=== PATIENT | male | born 1960 | race Caucasian/White ===

== ENCOUNTER 2020-11-16 09:11 | Emergency (ER) | payer OTHER ==
[~2020-11-16] VITALS: Ht 170.2 cm; Wt 83.9 kg
[2020-11-16 09:16] VITALS: BP_SYST 151
[2020-11-16] MEDS ORDERED: MAG HYDROX/AL HYDROX/SIMETH 30 ML, DICYCLOMINE HCL 20 MG, LIDOCAINE VISCOUS 2% 15ML (PO... PO ONE ×3 (09:45)
[2020-11-16] MEDS ORDERED: KETOROLAC TROMETHAMINE 60 MG/2 ML VIAL IM ONE (09:45)
[2020-11-16 09:50] LABS: BASOPHILS % (AUTO) 0.3 % (0.0-2.0); EOSINOPHILS # (AUTO) 0.1 K/uL (0.0-0.4); EOSINOPHILS % (AUTO) 0.8 % (0.0-4.0); HEMATOCRIT 48.6 % (36-54); HEMOGLOBIN 16.4 g/dL (14.0-18.0); LYMPHOCYTES # (AUTO) 1.5 K/uL (1.0-5.5); LYMPHOCYTES % (AUTO) 8.1 % (20.5-51.5); MEAN CORPUSCULAR HEMOGLOBIN 29 pg (27-31); MEAN CORPUSCULAR HGB CONC 34 % (32-36); MEAN CORPUSCULAR VOLUME 85 fL (79.0-98.0); MONOCYTES # (AUTO) 1.4 K/uL (0.0-1.0); MONOCYTES % (AUTO) 7.8 % (1.7-9.3); NEUTROPHILS # (AUTO) 15.2 K/uL (1.8-7.7); PLATELET COUNT (AUTO) 186 K/uL (130-430); RED BLOOD CELL COUNT(AUTO) 5.71 MIL/uL (4.2-6.2); RED CELL DISTRIBUTION WIDTH 12.7 % (9.0-15.0); WHITE BLOOD COUNT (AUTO) 18.3 K/uL (4.8-10.8)
[2020-11-16 10:11] LABS: CALCIUM 9.4 mg/dL (8.4-11.0); CREATININE 0.93 mg/dL (0.55-1.30); POTASSIUM 3.6 mmol/L (3.5-5.1)
[2020-11-16 10:17] LABS: ALBUMIN 3.7 g/dL (3.4-4.8); TOTAL BILIRUBIN 1.1 mg/dL (0.0-1.0)
[2020-11-16] MEDS ORDERED: HYDR-3917 PO (11:47)
[2020-11-16 12:06] VITALS: BP_SYST 129
== END 2020-11-16 12:06 | disposition home or self-care (01) ==
LOC: SED 09:11
DX: K80.50 Calculus of bile duct without cholangitis or cholecystitis without obstruction (principal); Z88.1 Allergy status to other antibiotic agents; Z79.899 Other long term (current) drug therapy
CPT/HCPCS: 36415; 74018; 76700; 80053; 83690; 85025; 96372; 99285; J1885; J2001

== ENCOUNTER 2020-11-17 19:30 | Inpatient (IN) | payer OTHER, SELFPAY ==
[~2020-11-17] VITALS: Ht 170.2 cm; Wt 78.5 kg
[~2020-11-17 19:30] MED LIST: HYDR-3917 PO
[2020-11-17 19:38] VITALS: BP_SYST 137
[2020-11-17] MEDS ORDERED: NACL 0.9% 1,000 ML IV ONE (21:15)
[2020-11-17 21:51] LABS: BASOPHILS % (AUTO) 0.2 % (0.0-2.0); EOSINOPHILS # (AUTO) 0.1 K/uL (0.0-0.4); EOSINOPHILS % (AUTO) 0.4 % (0.0-4.0); HEMATOCRIT 48.1 % (36-54); HEMOGLOBIN 16.4 g/dL (14.0-18.0); LYMPHOCYTES # (AUTO) 1.5 K/uL (1.0-5.5); LYMPHOCYTES % (AUTO) 8.7 % (20.5-51.5); MEAN CORPUSCULAR HEMOGLOBIN 29 pg (27-31); MEAN CORPUSCULAR HGB CONC 34 % (32-36); MEAN CORPUSCULAR VOLUME 85 fL (79.0-98.0); MONOCYTES # (AUTO) 1.6 K/uL (0.0-1.0); NEUTROPHILS # (AUTO) 14.4 K/uL (1.8-7.7); NEUTROPHILS % (AUTO) 81.7 % (40.0-70.0); PLATELET COUNT (AUTO) 180 K/uL (130-430); RED BLOOD CELL COUNT(AUTO) 5.66 MIL/uL (4.2-6.2); RED CELL DISTRIBUTION WIDTH 12.6 % (9.0-15.0); WHITE BLOOD COUNT (AUTO) 17.7 K/uL (4.8-10.8)
[2020-11-17 21:54] LABS: CALCIUM 9.1 mg/dL (8.4-11.0); CREATININE 0.95 mg/dL (0.55-1.30); POTASSIUM 3.8 mmol/L (3.5-5.1)
[2020-11-17 22:06] LABS: ALBUMIN 3.5 g/dL (3.4-4.8); TOTAL BILIRUBIN 1.3 mg/dL (0.0-1.0)
[2020-11-18] VITALS (7 sets, daily range): BP systolic 134–154
[2020-11-18] MEDS ORDERED: NICOTINE 14 MG/24 HR PATCH.TD24 TD ONE
[2020-11-18] MEDS ORDERED: NACL 0.9% 1,000 ML IV ONE
[2020-11-18] MEDS ORDERED: PIPERACILLIN/TAZO 3.375 GM in NS 50 ML IV ONE ×2
[2020-11-18] MEDS ORDERED: MORPHINE 4 MG INJ. 4 MG/ML VIAL IVP ONE
[2020-11-18 00:10] LABS: INR 1.1 (0.80-1.20); PROTHROMBIN TIME 11.3 SECS (9.5-12.5)
[2020-11-18] MEDS ORDERED: PIPERACILLIN/TAZOBACTAM 3.375 GM/VIAL (ZOSYN) IV ONE ×2 (00:20→05:40)
[2020-11-18 00:48] LABS: BILIRUBIN,URINE NEGATIVE (NEGATIVE); CLARITY/URINE CLEAR (CLEAR); COLOR,URINE YELLOW (YELLOW); GLUCOSE,URINE NEGATIVE (NEGATIVE); KETONES,URINE NEGATIVE (NEGATIVE); LEUKOCYTE ESTERASE ,URINE NEGATIVE (NEGATIVE); NITRITE, URINE NEGATIVE (NEGATIVE); PH,URINE 7.5 (5.0-8.0); PROTEIN URINE TRACE (NEGATIVE); UROBILINOGEN,URINE 0.2 (0.2-1.0)
[2020-11-18 00:51] LABS: BLOOD, URINE TRACE (NEGATIVE)
[2020-11-18] MEDS ORDERED: NALOXONE HCL 0.4 MG/ML AMP (NARCAN) IVP PRN (01:00)
[2020-11-18] MEDS ORDERED: ACETAMINOPHEN 325 MG TABLET PO PRN (01:00)
[2020-11-18] MEDS ORDERED: ALBUTEROL SULFATE 0.083% 2.5 MG/3 ML VIAL.NEB INH PRN (01:00)
[2020-11-18 01:07] LABS: BACTERIA,URINE FEW /HPF (None Seen); WBC,URINE 0-3 /HPF (0-3)
[2020-11-18] MEDS: MORPHINE 2 MG/ML INJ. SYRINGE IVP PRN ×3 (02:23→21:11)
[2020-11-18] MEDS ORDERED: HYDROmorphone 1 MG/ML INJ. CARTRIDGE IVP ONE (03:15)
[2020-11-18] MEDS ORDERED: POLYETHYLENE GLYCOL 3350, 17 GM/ POWD.PACK PO ONE (03:15)
[2020-11-18] MEDS: NACL 0.9% 1,000 ML IV SCH ×3 (04:12→21:00)
[2020-11-18] MEDS ORDERED: PIPERACILLIN/TAZO 3.375/DEX-IS 50 ML IV SCH (06:00)
[2020-11-18 08:11] LABS: BASOPHILS # (AUTO) 0.1 K/uL (0.0-0.2); BASOPHILS % (AUTO) 0.3 % (0.0-2.0); EOSINOPHILS # (AUTO) 0.1 K/uL (0.0-0.4); EOSINOPHILS % (AUTO) 0.7 % (0.0-4.0); HEMATOCRIT 44.6 % (36-54); HEMOGLOBIN 15.2 g/dL (14.0-18.0); LYMPHOCYTES % (AUTO) 11.1 % (20.5-51.5); MEAN CORPUSCULAR HEMOGLOBIN 29 pg (27-31); MEAN CORPUSCULAR HGB CONC 34 % (32-36); MEAN CORPUSCULAR VOLUME 85 fL (79.0-98.0); MONOCYTES % (AUTO) 11.1 % (1.7-9.3); NEUTROPHILS # (AUTO) 13.8 K/uL (1.8-7.7); NEUTROPHILS % (AUTO) 76.8 % (40.0-70.0); PLATELET COUNT (AUTO) 172 K/uL (130-430); RED BLOOD CELL COUNT(AUTO) 5.25 MIL/uL (4.2-6.2); RED CELL DISTRIBUTION WIDTH 12.6 % (9.0-15.0)
[2020-11-18 08:21] LABS: CALCIUM 8.5 mg/dL (8.4-11.0); CREATININE 0.85 mg/dL (0.55-1.30); POTASSIUM 3.6 mmol/L (3.5-5.1); TOTAL BILIRUBIN 1.4 mg/dL (0.0-1.0)
[2020-11-18] MEDS ORDERED: DEXTROSE 50% JECT 50 ML DISP.SYRIN IVP PRN (10:00)
[2020-11-18] MEDS: HYDROcodone/ACETAMIN 5-325 MG TAB (NORCO/ VICODIN) PO PRN (10:49)
[2020-11-18] MEDS: PIPERACILLIN/TAZO 3.375/DEX-IS 50 ML IV SCH (15:19)
[2020-11-18] MEDS ORDERED: ASA81 PO (16:06)
[2020-11-18] MEDS ORDERED: MULT-1089 PO (16:06)
[2020-11-18] MEDS ORDERED: FISH400C3 PO (16:06)
[2020-11-18] MEDS ORDERED: GLIP5TAB13 PO (16:06)
[2020-11-18] MEDS ORDERED: LOSA100T3 PO (16:06)
[2020-11-18] MEDS ORDERED: METF-518 PO (16:06)
[2020-11-18] MEDS ORDERED: OMEP20CA15 PO (16:06)
[2020-11-18] MEDS ORDERED: VITA1CAP PO (16:06)
[2020-11-18] MEDS ORDERED: FINA5TAB3 PO (16:06)
[2020-11-18] MEDS ORDERED: HYT1 PO (16:06)
[2020-11-18] MEDS ORDERED: HYDROcodone/ACETAMIN 5-325 MG TAB (NORCO/ VICODIN) PO PRN (17:00)
[2020-11-18] MEDS ORDERED: ONDANSETRON HCL 4 MG/2 ML VIAL IVP PRN (17:15)
[2020-11-18] MEDS ORDERED: METOCLOPRAMIDE HCL 10 MG/2 ML VIAL IVP PRN (17:15)
[2020-11-18] MEDS ORDERED: fentaNYL CITRATE/PF 100 MCG/2 ML AMP IVP PRN ×2 (17:15)
[2020-11-18] MEDS ORDERED: GLYCOPYRROLATE 0.2 MG/ML VIAL ONE (18:00)
[2020-11-18] MEDS ORDERED: BUPIVACAINE /PF 0.5% 30 ML VIAL ONE (18:00)
[2020-11-18] MEDS ORDERED: PROPOFOL 200MG/ 20ML VIAL (DIPRIVAN) IV ONE (18:00)
[2020-11-18] MEDS ORDERED: PHENYLEPHRINE HCL 10 MG/ML VIAL (NEOSYNEPHRINE) ONE (18:00)
[2020-11-18] MEDS ORDERED: MIDAZOLAM HCL 5 MG/ML VIAL (VERSED) IV ONE (18:00)
[2020-11-18] MEDS ORDERED: NS 1000 ML IV.SOLN IV ONE (18:00)
[2020-11-18] MEDS ORDERED: SEVOFLURANE 15 MIN GAS INH ONE (18:00)
[2020-11-18] MEDS ORDERED: fentaNYL CITRATE/PF 100 MCG/2 ML AMP ONE ×2 (18:00→18:24)
[2020-11-18] MEDS ORDERED: ONDANSETRON HCL 4 MG/2 ML VIAL ONE (18:00)
[2020-11-18] MEDS ORDERED: LIDOCAINE/EPI 1% 1:100000 20 ML VIAL INJ ONE (18:00)
[2020-11-18] MEDS: HYDROmorphone 1 MG/ML INJ. CARTRIDGE IM PRN (22:40)
[2020-11-19] MEDS: PIPERACILLIN/TAZO 3.375/DEX-IS 50 ML IV SCH ×2 (00:10→06:41)
[2020-11-19] MEDS: INSULIN REGULAR, HUMAN 100 UNITS/ML, 10 ML VIAL (humuLIN R) SUBCUT PRN ×2 (00:21→06:50)
[2020-11-19 00:30] VITALS: BP_SYST 145
[2020-11-19] MEDS: NACL 0.9% 1,000 ML IV SCH ×2 (01:00→09:31)
[2020-11-19 03:48] VITALS: BP_SYST 130
[2020-11-19] MEDS: HYDROcodone/ACETAMIN 5-325 MG TAB (NORCO/ VICODIN) PO PRN (04:19)
[2020-11-19 06:51] VITALS: BP_SYST 121
[2020-11-19 09:15] VITALS: BP_SYST 133
[2020-11-19] MEDS: HYDROmorphone 1 MG/ML INJ. CARTRIDGE IM PRN (11:45)
[2020-11-19 13:46] VITALS: BP_SYST 133
== END 2020-11-19 14:17 | disposition home or self-care (01) | DRG 419 ==
LOC: SED 19:30 → SMU 11-18 00:15
PROVIDERS: ADMIT Internal Medicine Hospice and Palliative Medicine; ATTEND Internal Medicine Hospice and Palliative Medicine
PROC: 0DNU4ZZ Release Omentum, Percutaneous Endoscopic Approach (ICD-10-PCS; 2020-11-18)
PROC: 5A09357 Assistance with Respiratory Ventilation, Less than 24 Consecutive Hours, Continuous Positive Airway Pressure (ICD-10-PCS; 2020-11-18)
PROC: 0FT44ZZ Resection of Gallbladder, Percutaneous Endoscopic Approach (ICD-10-PCS; principal; 2020-11-18 16:30)
DX: K81.0 Acute cholecystitis (principal); I10 Essential (primary) hypertension; E11.9 Type 2 diabetes mellitus without complications; K66.0 Peritoneal adhesions (postprocedural) (postinfection); Z20.822 Contact with and (suspected) exposure to COVID-19; F17.210 Nicotine dependence, cigarettes, uncomplicated; Z88.1 Allergy status to other antibiotic agents; Z88.8 Allergy status to other drugs, medicaments and biological substances; Z88.0 Allergy status to penicillin; Z79.82 Long term (current) use of aspirin; Z79.899 Other long term (current) drug therapy
CPT/HCPCS: 36415; 71045; 76700-TC; 80053; 81000; 82962; 83605; 83690; 85025; 85610-TC; 85730-TC; 86886; 86900; 86901; 87040-TC; 87081; 88304; 93005; 94760; 96365; 96375; 99285; J1170; J2250; J2270; J2370; J2405; J2543; J2704; J3010; J3490; J7030